=== PATIENT | female | born 1960 | race Caucasian/White ===

== ENCOUNTER 2023-12-12 08:23 | Inpatient (IN) ==
--- NOTE | 2023-11-24 11:05 | PAT Medication Instructions ---
Medication Instructions Date of Service November 24, 2023 Home Medications acetaminophen 500 mg tablet 1,000 mg PO BID cetirizine 10 mg tablet (Zyrtec) 10 mg PO QAM cholecalciferol (vitamin D3) 25 mcg (1,000 unit) tablet (Vitamin D3) 25 mcg PO QAM escitalopram oxalate 10 mg tablet 10 mg PO QAM ezetimibe 10 mg tablet 10 mg PO QAM meloxicam 15 mg tablet 15 mg PO QAM montelukast 10 mg tablet 10 mg PO HS pravastatin 80 mg tablet 80 mg PO HS ASK your surgeon for instructions meloxicam 15 mg tablet 15 mg PO QAM DO NOT take the morning of surgery cetirizine 10 mg tablet (Zyrtec) 10 mg PO QAM cholecalciferol (vitamin D3) 25 mcg (1,000 unit) tablet (Vitamin D3) 25 mcg PO QAM Take morning of surgery With a small sip of water, OTHERWISE NOTHING TO EAT OR DRINK AFTER MIDNIGHT: acetaminophen 500 mg tablet 1,000 mg PO BID escitalopram oxalate 10 mg tablet 10 mg PO QAM ezetimibe 10 mg tablet 10 mg PO QAM Take evening before surgery acetaminophen 500 mg tablet 1,000 mg PO BID montelukast 10 mg tablet 10 mg PO HS pravastatin 80 mg tablet 80 mg PO HS Other Notes If you have any questions please call us at [phone] or [phone] or [phone] or [phone]
--- NOTE | 2023-11-29 08:50 | Anesthesiology Consultation ---
Date of Service November 29, 2023 Assessment & Plan (1) Encounter for pre-operative examination: - surgeon ordered medical clearance: PCP is Dr. Chery Kearns. - potential difficult intubation: mildly limited cervical spine extension. Chart Review Chart Review: Pending: Refer to Additional Notes / Consult section and Patient seen in Pre Admission Testing Teaching & Discussion Pre-Anesthesia Teaching/Discussion Notes: Instructed NPO after midnight before surgery, except medications with 15 cc of water. Medication instructions provided according to the PAT guidelines. History Surgery Operation Date: 12/12/23 10:05 Proposed Procedures p L4-S1 Decompression and Fusion Spinal Cord Monitoring - Gopal Macias DO Height/Weight Height: 5 ft Weight: 82.6 kg Allergies Allergy/AdvReac Type Severity Reaction Status Date / Time No Known Allergies Allergy Verified 11/23/23 11:37 Medications Home Medications Medication Instructions Recorded Confirmed Last Taken acetaminophen 500 mg tablet 1,000 mg PO BID 11/23/23 11/23/23 Unknown cetirizine 10 mg tablet (Zyrtec) 10 mg PO QAM 11/23/23 11/23/23 Unknown cholecalciferol (vitamin D3) 25 25 mcg PO QAM 11/23/23 11/23/23 Unknown mcg (1,000 unit) tablet (Vitamin D3) escitalopram oxalate 10 mg tablet 10 mg PO QAM 11/23/23 11/23/23 Unknown ezetimibe 10 mg tablet 10 mg PO QAM 11/23/23 11/23/23 Unknown meloxicam 15 mg tablet 15 mg PO QA 11/23/23 11/23/23 Unknown montelukast 10 mg tablet 10 mg PO HS 11/23/23 11/23/23 Unknown pravastatin 80 mg tablet 80 mg PO 11/23/23 11/23/23 Unknown Past Medical History Medical History Chronic back pain Depression Hyperlipidemia Scoliosis Patient denies h/o stroke, seizures, heart attack, heart failure, DM, HTN, blood clots/DVTs or blood transfusions. Exercise / Class Metabolic Activity II 4-5 Yardwork/Stairs/Walk up hill (denies chest discomfort or shortness of breath with 1 FOS) Past Family History Family History Other No family history of adverse response to anesthesia Past Surgical History Surgical History History of arthroscopy of right knee History of bilateral carpal tunnel release History of cervical spinal surgery normal ROM History of knee surgery left patella sx History of tonsillectomy History of tooth extraction all teeth removed History of total hysterectomy with bilateral salpingo-oophorectomy (BSO) Status post trigger finger release Past Anesthesia History No Hx of Anesthesia Complications and No Family Hx of Anesthesia Complications History of PONV No Hx of PONV and No Hx of Motion Sickness Social History Smoking Status: Former smoker Do You Dip or Chew Tobacco: No Smoking End Date: quit 5 yrs ago Hx Alcohol Use: No Hx Substance Use: No substance use type: does not use Review of Systems Snoring, denies witnessed apneas. Patient denies chest pain, shortness of breath, dyspnea on exertion, reflux, fever, chills, cough, wheezing, or palpitations. Physical Exam Vital Signs Vitals BP 108/70 P 69 TEMP unable to register as patient was drinking cold water in clinic SP02 94% on RA RESP 18 Physical Patient resting comfortably in chair in no acute distress, alert and oriented, responding appropriately throughout visit Mildly limited cervical extension range of motion without pain TMD 3.5 finger breadths Mallampati Score 3 Dentition: edentulous Lungs: normal respiratory effort. Good air movement, clear throughout to auscultation, no adventitious breath sounds Cardiac: regular rate and rhythm, no murmurs noted Carotid arteries: negative bruit bilat Lab Results Anesthesia Preop Results Results Anesthesia Widget: WBC 6.97 K/ul (4.8-10.8) 11/29/23 Hgb 14.4 g/dl (12.0-16.0) 11/29/23 Hct 43.5 % (37.0-47.0) 11/29/23 Plt 329 K/uL (130-400) 11/29/23 Na 135 mmol/L (136-145) L 11/29/23 K 4.6 mmol/L (3.5-5.1) 11/29/23 Cl 101 mmol/L (98-107) 11/29/23 CO2 28 mmol/L (21-32) 11/29/23 BUN 9 mg/dl (6-23) 11/29/23 Creat 0.66 mg/dl (0.6-1.2) 11/29/23 Glucose Level 100 mg/dl (70-99(Fasting)) H 11/29/23 PT 10.5 Seconds (9.0-12.0) 11/29/23 PTT 29 Seconds (21-31) 11/29/23 INR 1.0 (0.9-1.1) 11/29/23 Urine Color Yellow 11/29/23 Urine Appearance Clear (Clear) 11/29/23 Urine pH 7.0 (4.5-7.5) 11/29/23 Urine Specific [place] 1.006 (1.000-1.030) 11/29/23 Urine Protein Negative (Negative) 11/29/23 Urine Glucose (UA) Negative (Negative) 11/29/23 Urine Ketones Negative (Negative) 11/29/23 Urine Blood Negative (Negative) 11/29/23 Urine Nitrite Negative (Negative) 11/29/23 Urine Bilirubin Negative (Negative) 11/29/23 Urine Urobilinogen Negative (Negative) 11/29/23 Urine Leukocyte Esterase 3+ (Negative) H 11/29/23 Urine WBC (Auto) 10-30 /hpf (0-5) H 11/29/23 Urine RBC (Auto) 0-4 /hpf (0-4) 11/29/23 Urine Hyaline Casts (Auto) 0 /lpf (0-5) 11/29/23 Urine Epithelial Cells (Auto) >30 /lpf (0-5) H 11/29/23 Urine Bacteria (Auto) Negative (Negative) 11/29/23 Blood Type O Positive 11/29/23 Antibody Screen NEGATIVE 11/29/23 Testing Electrocardiogram Date: 11/29/23 NSR, rate 67 bpm Chest X-Ray Date: 11/29/23 No acute process.
[~2023-12-12 08:23] MED LIST: DEXAMETHASONE SOD INJ 4 MG/ML VIAL ONE; LIDOCAINE 2% 2 ML VIAL/AMP(20MG/ML) INFIL ONE; MIDAZOLAM HCL 1 MG/ML 2ML VIAL ONE; ONDANSETRON INJ 2 MG/ML 2 ML VIAL ONE; PROPOFOL IV EMULSION 10 MG/ML 20 ML VIAL IV ONE; ROCURONIUM BROMIDE 10 MG/ML 5 ML VIAL IV ONE; SUGAMMADEX SODIUM 200 MG/2 ML VIAL IV ONE; fentaNYL citrate PF 100 MCG/2 ML VIAL ONE
[2023-12-12] MEDS: LR 60ML/HR IV SCH (09:02)
[2023-12-12] MEDS: LR 15ML/HR IV SCH (09:02)
[2023-12-12] MEDS: CeleBREX 200 MG CAP PO SCH (09:03)
[2023-12-12] MEDS: GABAPENTIN 600 MG DOSE PO SCH (09:03)
[2023-12-12] MEDS: ACETAMINOPHEN 500 MG TAB PO SCH (09:04)
[2023-12-12] MEDS ORDERED: ePHEDrine sulfate 50 MG/ML AMP IV PRN (09:04)
[2023-12-12] MEDS ORDERED: ATROPINE SULFATE 0.1 MG/ML 10ML SYR IV PRN (09:04)
[2023-12-12] MEDS ORDERED: ONDANSETRON INJ 2 MG/ML 2 ML VIAL IV PRN ×2 (09:04→13:43)
--- NOTE | 2023-12-12 09:47 | History & Physical Bridge Note ---
Date of Service December 12, 2023 History & Physical Bridge Note I have examined the patient, reviewed the History & Physical and in the interval since the performance of the History & Physical I have noted the following changes of clinical significance: no changes noted
--- NOTE | 2023-12-12 09:48 | History & Physical Report ---
Date of Service December 12, 2023 Assessment & Plan (1) Neurogenic claudication due to lumbar spinal stenosis: Plan: L4-S1 decompression and fusion History of Present Illness Chief Complaint: Back and leg pain Primary Care Provider: Chery Kearns MD This is a 63-year-old female who presents with chronic persistent back and leg pain after failing course of nonoperative care she is here for surgical invention. Allergies Allergy/AdvReac Type Severity Reaction Status Date / Time No Known Allergies Allergy Verified 12/12/23 08:45 Home Medications Medication Instructions Recorded Confirmed Type acetaminophen 500 mg tablet 1,000 mg PO BID 11/23/23 12/12/23 History cetirizine 10 mg tablet (Zyrtec) 10 mg PO QAM 11/23/23 12/12/23 History cholecalciferol (vitamin D3) 25 25 mcg PO QAM 11/23/23 12/12/23 History mcg (1,000 unit) tablet (Vitamin D3) escitalopram oxalate 10 mg tablet 10 mg PO QAM 11/23/23 12/12/23 History ezetimibe 10 mg tablet 10 mg PO QAM 11/23/23 12/12/23 History meloxicam 15 mg tablet 15 mg PO QAM 11/23/23 12/12/23 History montelukast 10 mg tablet 10 mg PO HS 11/23/23 12/12/23 History pravastatin 80 mg tablet 80 mg PO HS 11/23/23 12/12/23 History Past Med/Surg History Medical History Chronic back pain Depression Hyperlipidemia Scoliosis Surgical History History of arthroscopy of right knee History of bilateral carpal tunnel release History of cervical spinal surgery normal ROM History of knee surgery left patella sx History of tonsillectomy History of tooth extraction all teeth removed History of total hysterectomy with bilateral salpingo-oophorectomy (BSO) Status post trigger finger release Family History Other No family history of adverse response to anesthesia Social History Smoking Status: Former smoker Tobacco Type: Cigarettes Smoking End Date: quit 5 yrs ago; Second Hand Exposure: No; Do You Dip or Chew Tobacco: No; Tobacco Cessation Education Requested by Patient: No Hx Alcohol Use: No Hx Substance Use: No Preferred Language: Arabic Communication Ability: Effective As400 Programmer Required: No Beliefs That Will Affect Care: None Current Living Situation: Significant Other Other Information That Helps Us Care for You: No Feels Safe at Home: Yes Safety Concerns: Feels Safe At This Time Assistive Devices: Denture - Upper and Glasses Physical Exam Physical Exam: Patient is alert and oriented Heart regular in rhythm lungs clear Results & Data Results & Data Vital Signs (Past 12 Hours) Vital Signs Temp Pulse Resp BP Pulse Ox O2 Del Method 12/12/23 08:35 36.5 C 78 20 151/73 H 95 Room Air
[2023-12-12] MEDS: ceFAZolin 2000MG 2,000 MG/15 ML SYR IV SCH ×2 (10:13→17:39)
[2023-12-12] MEDS ORDERED: ePHEDrine sulfate 50 MG/ML AMP ONE (10:33)
[2023-12-12] MEDS: BUPIVACAINE/EPINEPHRINE 0.5% MPF 1:200,000 30 ML VIAL ONE (10:54)
[2023-12-12] MEDS: ceFAZolin 330 MG/ML 1 GM VIAL ONE (10:54)
[2023-12-12] MEDS: FLOSEAL HEMOSTATIC MATRIX 10ML TOP ONE (11:49)
[2023-12-12] MEDS ORDERED: ONDANSETRON INJ 2 MG/ML 2 ML VIAL ONE (11:51)
--- NOTE | 2023-12-12 11:59 | Operative Report ---
Post Operative Report Pre & Post Diagnosis Operation Date: 12/12/23 10:05 Pre-Op Diagnosis: Neurogenic Claudication due to Lumbar Spinal Stenosis Post-Op Diagnosis: Neurogenic Claudication due to Lumbar Spinal Stenosis I identified the patient and participated in the time-out.: Yes Procedure Operation Date: 12/12/23 10:05 Actual Procedures Lumbar decompression bilateral medial facetectomies and foraminotomies L3-L4, L4-5 and L5-S1. #2 posterior spinal fusion L4-S1. #3 placed posterior instrumentation L4-S1. #4 interbody fusion L4-L5 L5-S1. #5 placement spiral 12 x 26 mm cage at L4-5 and 11 x 26 mm cage at L5-S1. #6 placement locally harvested morselized autograft and posterior gutters. #7 placement of infuse collagen sponge combined with Koros bone graft in the posterior gutters and Koros bone graft interbody space. Surgeon Gopal Macias, DO Mud Jack Nozzleman Staci Partida Estimated Blood Loss 400 Findings See Below The patient is 5 foot tall weighing over 82 kg with a BMI in excess of 35. Pat ient body habitus did contribute to significant technical difficulty with positioning exposure and the procedure itself adding at least 50% increased operative time. Specimens None Indications This is a 63-year-old female who presents above-mentioned diagnosis and failed course of nonoperative care is here for surgical invention. Description of Procedure Patient was met with identified informed consent obtained. Patient was then taken to the operative suite underwent patient placed in prone position on the Ml table top the Dany frame. All bony prominences well-padded eyes inspected to ensure no external precipice upon them. This point lumbar spine was prepped and draped in a sterile fashion. Sharp dissection with the assistance of Bovie cautery to form down to and exposing the lamina transverse processes of L4-5 and sacral ala bilaterally. For calcified fashion complete laminectomy L5 L4 postlaminectomy L3 was performed including bilateral male facetectomies and foraminotomies addressing severe spinal stenosis. Pedicle screws were then placed at L4-5 and S1 levels bilaterally with assistance of fluoroscopy appropriate size puma placed. By way of transforaminal approach on the left complete discectomy of L5-S1 was performed endplates guarded to subcortical mean bone and a 10 x 26 mm Spira cage with Koros tapped into position. Then proceeded to L [address] by [address] of transforaminal approach the left complete discectomy performed endplates guarded to subcortical bleeding bone and a 12 x 26 mm spiral cage filled with Koros tapped position. The rods were then compressed locked in final position bilaterally. The transverse processes of L4-5 and sacral ala burred to subcortical bleeding bone. Infuse collagen sponge, mass graft locally harvested morselized graft placed in posterior gutters. 15 round THEE inserted. The incision was then closed with 1 Vicryl and fascia 2-0 Vicryl subcutaneously and 4 Monocryl for final skin closure. Steri-Strips dressings placed. Patient waken taken to PACU stable condition. Please note spinal cord monitoring visualized at the procedure no changes noted. Lastly Staci Partida was present at the entire surgeon while the patient positioning complex portion of the surgery and final skin closure. I attest to the content of the Intraoperative Record and any orders documented therein. Any exceptions are noted below.
[2023-12-12] MEDS: fentaNYL citrate PF 100 MCG/2 ML VIAL IV PRN (12:25)
--- NOTE | 2023-12-12 12:38 | Fluoroscopy Report ---
FL lumbar spine 2-3V CLINICAL HISTORY: L4-S1 DECOMPRESSION AND FUSION COMPARISON STUDY: None. FLUOROSCOPY TIME: 24 seconds FLUOROSCOPY IMAGES: 2 Ka,r: 20 mGy FINDINGS: Posterior decompression and fusion from L4 through S1 with pedicle screws and rods. The naty dware appears intact. Disc spacers are placed. Small pledget is seen posterior to the L4-5 disc space . IMPRESSION: Fluoroscopic assistance as above. ACT 112: Negative or not required by law. Electronically signed by: Harman Bullock M.D. 12/12/2023 12:36 PM
[2023-12-12] MEDS: HYDROmorphone INJ 1 MG/ML SYRINGE IV PRN (12:54)
--- NOTE | 2023-12-12 13:16 | Anesthesiology Progress Note ---
Date of Service December 12, 2023 Anesthesia Post Procedure Vital Signs Vital Signs: Temp Pulse Resp BP Pulse Ox O2 Del Method O2 Flow Rate 12/12/23 13:10 97.3 F L 91 H 16 116/67 98 Nasal Cannula 2 12/12/23 13:00 94 H 18 115/74 98 Nasal Cannula 2 12/12/23 12:50 91 H 15 118/63 96 Nasal Cannula 2 12/12/23 12:40 86 19 114/77 96 Oxymask 4 12/12/23 12:30 83 17 155/83 H 98 Oxymask 6 12/12/23 12:20 94 H 16 142/87 H 98 Oxymask 6 12/12/23 12:14 97.3 F L 96 H 24 156/76 H 98 Oxymask 6 12/12/23 08:35 97.7 F 78 20 151/73 H 95 Room Air Pain Intensity Back: Pain Intensity: 2 Transfer of Care Handoff Completed per policy Notes Mental Status: alert / awake / arousable and participated in evaluation Patient Amnestic to Procedure: Yes Nausea / Vomiting: adequately controlled Pain: adequately controlled Airway Patency, RR, SpO2: stable & adequate BP & HR: stable & adequate Hydration State: stable & adequate Anesthetic Complications: no major complications apparent and Pt Satisfied with anesthetic care
[2023-12-12] MEDS ORDERED: NALOXONE HCL 0.4 MG/1 ML VIAL/CARP IV PRN (13:43)
[2023-12-12] MEDS ORDERED: FAMOTIDINE 20 MG TAB PO PRN (13:43)
[2023-12-12] MEDS ORDERED: ALUMINUM/MAGNESIUM SUSP 30 ML UDC PO PRN (13:43)
[2023-12-12] MEDS ORDERED: MAGNESIUM HYDROXIDE SUSP 30 ML UDC PO PRN (13:43)
[2023-12-12] MEDS ORDERED: PROMETHAZINE HCL 12.5 MG in SODIUM CHLORIDE 0.9% 50 ML IV PRN (13:43)
[2023-12-12] MEDS ORDERED: HYDROmorphone INJ 0.5 MG/0.5 ML SYR IV PRN (13:43)
[2023-12-12] MEDS ORDERED: hydrOXYzine HCl 25 MG TAB PO PRN (13:43)
[2023-12-12] MEDS ORDERED: DO NOT ADMINISTER PNEUMOCOCCAL VACCINE PRN (13:43)
[2023-12-12] MEDS ORDERED: ACETAMINOPHEN 1,000 MG/100 ML VIAL IV PRN (13:43)
[2023-12-12] MEDS ORDERED: LORazepam 0.5 MG TAB PO PRN (13:43)
[2023-12-12] MEDS ORDERED: LORazepam 0.5 MG in SYRINGE 0.25 ML IV PRN (13:43)
[2023-12-12] MEDS ORDERED: SOD PHOSPHATE/SOD BIPHOSPHATE ENEMA 132 ML BTL PR PRN (13:43)
[2023-12-12] MEDS ORDERED: ONDANSETRON 4 MG OD TAB PO PRN (13:43)
[2023-12-12] MEDS ORDERED: bisacodyL 10 MG SUPP PR PRN (13:43)
[2023-12-12] MEDS ORDERED: diphenhydrAMINE Capsule 25 MG CAP PO PRN (13:43)
[2023-12-12] MEDS ORDERED: METOCLOPRAMIDE HCL INJ 5 MG/ML 2 ML VIAL IV PRN (13:43)
[2023-12-12] MEDS ORDERED: DO NOT ADMINISTER FLU VACCINE PRN (13:43)
[2023-12-12] MEDS ORDERED: HYDROmorphone INJ 1 MG/ML SYRINGE IV PRN (13:43)
[2023-12-12] MEDS: SODIUM CHLORIDE 0.9% 1,000 ML IV SCH (14:29)
--- NOTE | 2023-12-12 15:03 | Consultation ---
Date of Consultation December 12, 2023 Assessment & Plan (1) Neurogenic claudication due to lumbar spinal stenosis: (2) Hyperlipidemia: Plan This is a 63-year-old female who has a significant past medical history of chronic back pain, hyperlipidemia and depression who presents for elective lumbar procedure by Dr. Macias. Neurogenic claudication due to lumbar spinal stenosis Status post L4-S1 lumbar decompression fusion, POD #[address] Macias EBL 400 mL Tolerated procedure well Pain/wound management per orthopedics Activity and therapy as prescribed orthopedics Encourage incentive spirometer Preoperative hemoglobin 14.4, monitor postoperatively Hyperlipidemia Chronic, stable Continue statin, ezetimibe Depression Chronic, stable Continue escitalopram DVT prophylaxis: SCD Full code PCP: Chery Kearns Dispo: per primary Patient was seen and examined in collaboration with, Dr. Pineda, please see addendum A total of 45 minutes was spent coordinating, documenting, and providing care for this patient excluding time spent in the performance of separately billed services. This included personally viewing all current laboratories and imaging studies, medication reconciliation, outpatient chart review, and discussion with specialists. Thank you for this consultation. We will follow the patient with you during their hospital stay. You can reach a member of the [facility] Hospitalist Team 15/05 via hospitalist role on tiger text. Supervising Physician Co-Signing Physician Notes Attending addendum: The patient was seen and examined in medical floor She is status post L4-S1 decompression and fusion Complaints minimal pain at the back without radiation Denies any other significant symptoms On examined Lying in bed comfortably Remains hemodynamically stable Chest-clear to auscultate bilateral Heart-S1-S2, regular Abdomen-benign Extremities-no edema CONE PICKER-alert, awake and oriented x 3 Her labs, EKG and imaging studies reviewed Status post L4-S1 decompression and fusion for neurogenic claudication Has been doing better following the procedure and denies any significant sym ptoms Remains medically stable Agree with assessment plan as outlined above by Tyesha Pineda History of Present Illness Requesting Physician: Dr. Macias Reason for Consultation: Postop med management Attending Physician: Gopal Macias, DO History of Present Illness This is a 63-year-old female who has a significant past medical history of chronic back pain, hyperlipidemia and depression who presents for elective lumbar procedure by Dr. Macias. She underwent L4-S1 lumbar decompression fusion and tolerated the procedure well. Her outpatient records were reviewed. She is history of hyperlipidemia controlled on pravastatin. She is also on ezetimibe. She also has history of depression controlled on escitalopram. Shes states ever since her she has been on this. Post operatively she feels well. She is complaining of incisional back pain and requesting analgesia. She denies f/c/s, chest pain, sob, n/v/d. She tolerated lunch post operatively. Prior to procedure she was passing urine and moving bowels w/o difficulty. Allergies Allergy/AdvReac Type Severity Reaction Status Date / Time No Known Allergies Allergy Verified 12/12/23 08:45 Home Medications Medication Instructions Recorded Confirmed Type acetaminophen 500 mg tablet 1,000 mg PO BID 11/23/23 12/12/23 History cetirizine 10 mg tablet (Zyrtec) 10 mg PO QAM 11/23/23 12/12/23 History cholecalciferol (vitamin D3) 25 25 mcg PO QAM 11/23/23 12/12/23 History mcg (1,000 unit) tablet (Vitamin D3) escitalopram oxalate 10 mg tablet 10 mg PO QAM 11/23/23 12/12/23 History ezetimibe 10 mg tablet 10 mg PO QAM 11/23/23 12/12/23 History meloxicam 15 mg tablet 15 mg PO QAM 11/23/23 12/12/23 History montelukast 10 mg tablet 10 mg PO HS 11/23/23 12/12/23 History pravastatin 80 mg tablet 80 mg PO HS 11/23/23 12/12/23 History oxycodone 5 mg tablet 5 mg PO Q6H PRN pain #30 tabs 12/12/23 Rx tramadol 50 mg tablet 50 mg PO Q6H PRN pain, moderate 12/12/23 Rx #30 tabs Patient History Medical History (Updated 12/12/23 @ 15:00 by Amirah Stein PA-C) Scoliosis Chronic back pain Hyperlipidemia Depression Surgical History History of bilateral carpal tunnel release Status post trigger finger release History of knee surgery left patella sx History of arthroscopy of right knee History of total hysterectomy with bilateral salpingo-oophorectomy (BSO) History of tooth extraction all teeth removed History of tonsillectomy History of cervical spinal surgery normal ROM Family History (Updated 12/12/23 @ 15:19 by Amirah Stein PA-C) Other Coronary heart disease No family history of adverse response to anesthesia Social History Smoking Status: Former smoker Tobacco Type: Cigarettes Smoking End Date: quit 5 yrs ago; Second Hand Exposure: No; Do You Dip or Chew Tobacco: No; Tobacco Cessation Education Requested by Patient: No Hx Alcohol Use: No Hx Substance Use: No Preferred Language: Malaysian Communication Ability: Effective Water Meter Mechanic Required: No Beliefs That Will Affect Care: None Current Living Situation: Significant Other Other Information That Helps Us Care for You: No Feels Safe at Home: Yes Safety Concerns: Feels Safe At This Time Assistive Devices: Walker Review of Systems Review of Systems: All systems reviewed & are unremarkable except as noted in HPI & below Physical Exam Physical Exam: Constitutional: WD/WN, vitals as above, NAD, sitting up in bed, pleasant, conversing easily Head: Normocephalic, Atraumatic Eyes: PERRL, conjunctivae normal, anicteric sclerae ENMT: external ear and nose normal, oropharynx normal Neck: trachea midline, no thyromegaly normal visual inspection Respiratory: normal respiratory effort, lungs clear to auscultation, no wheeze, rales, rhonchi. Normal insp/exp effort, no accessory muscle use Cardiovascular: RRR, no murmur, no edema Vessels: no JVD or carotid bruit Chest: normal inspection of chest Abdomen: normal bowel sounds, soft, nontender, no hepatosplenomegaly Musculoskeletal: no cyanosis or clubbing, extremities motor strength 5/5 Skin: no rashes, warm and dry normal turgor Neurologic: PERRL, EOMI, accommodation nl, no face palsy, no dysarthria CN's II-XI intact bilaterally and moves all extremities Psychiatric: A+Ox3, euthymic affect Lymphatic: no cervical or axillary lymphadenopathy : deferred Results & Data Vital Signs (Past 12 Hours) Vital Signs Temp Pulse Pulse Resp BP Pulse Ox O2 Del Method 12/12/23 14:25 36.1 C L 95 H 14 108/61 92 Room Air 12/12/23 13:55 36.2 C L 92 H 14 110/62 93 Room Air 12/12/23 13:30 36.9 C 94 H 14 123/69 94 Room Air 12/12/23 13:10 36.3 C L 91 H 16 116/67 98 Nasal Cannula 12/12/23 13:00 94 H 18 115/74 98 Nasal Cannula 12/12/23 12:50 91 H 15 118/63 96 Nasal Cannula 12/12/23 12:40 86 19 114/77 96 Oxymask 12/12/23 12:30 83 17 155/83 H 98 Oxymask 12/12/23 12:20 94 H 16 142/87 H 98 Oxymask 12/12/23 12:14 36.3 C L 96 H 24 156/76 H 98 Oxymask 12/12/23 08:35 36.5 C 78 20 151/73 H 95 Room Air O2 Flow Rate 12/12/23 14:25 12/12/23 13:55 12/12/23 13:30 12/12/23 13:10 2 12/12/23 13:00 2 12/12/23 12:50 2 12/12/23 12:40 4 12/12/23 12:30 6 12/12/23 12:20 6 12/12/23 12:14 6 12/12/23 08:35 Laboratory Results Lab work performed on 11/29/2023 reviewed WBC 6.97, H&H 14.4 and 43.5, platelet 329, sodium 135, BUN 9, creatinine 0.66, glucose 100. Urinalysis revealed bacteria, but urine culture revealed more than 3 types of organisms present likely skin gavi. Diagnostic Findings Lumbar Spine X-Ray 12/12/23 10:05 FL lumbar spine 2-3V CLINICAL HISTORY: L4-S1 DECOMPRESSION AND FUSION COMPARISON STUDY: None. FLUOROSCOPY TIME: 24 seconds FLUOROSCOPY IMAGES: 2 Ka,r: 20 mGy FINDINGS: Posterior decompression and fusion from L4 through S1 with pedicle screws and rods. The hardware appears intact. Disc spacers are placed. Small pledget is seen posterior to the L4-5 disc space. IMPRESSION: Fluoroscopic assistance as above. ACT 112: Negative or not required by law. Electronically signed by: Harman Bullock M.D. 12/12/2023 12:36 PM Medications Administered Current Inpatient Medications Acetaminophen (Acetaminophen 500 Mg Tab) 1,000 mg PO PREOP ASPEN Stop: 12/12/23 18:00 Last Admin: 12/12/23 09:04 Dose: Not Given Acetaminophen (Acetaminophen 500 Mg Tab) 1,000 mg PO Q8H PRN PRN Reason: MILD Pain Scale 1,2,3 & Pre PT Stop: 01/11/24 13:42 Al Hydrox/Mg Hydrox/Simethicone (Aluminum/Magnesium Susp 30 Ml Udc) 30 ml PO Q6H PRN PRN Reason: Dyspepsia Stop: 01/11/24 13:42 Atropine Sulfate (Atropine Sulfate 0.1 Mg/Ml 10ml Syr) 0.5 mg IV Q1M PRN PRN Reason: PACU Use-HR<40 &/or Bradycardi Stop: 12/12/23 17:04 Bisacodyl (Bisacodyl 10 Mg Supp) 10 mg MT DAILY PRN PRN Reason: Constipation Stop: 01/11/24 13:42 Celecoxib (Celebrex 200 Mg Cap) 200 mg PO PREOP ASPEN Stop: 12/12/23 18:00 Last Admin: 12/12/23 09:03 Dose: 200 mg Cetirizine HCl (Cetirizine Hcl 10 Mg Tablet) 10 mg PO QAM ASEPN Stop: 01/12/24 08:59 Diphenhydramine HCl (Diphenhydramine Capsule 25 Mg Cap) 25 mg PO Q6H PRN PRN Reason: Allergic Rhinitis/Insomnia Stop: 01/11/24 13:42 Ezetimibe (Ezetimibe 10 Mg Tab) 10 mg PO QAM ASPEN Stop: 01/12/24 08:59 Ephedrine Sulfate (Ephedrine Sulfate 50 Mg/Ml Amp) 5 mg IV Q5M PRN PRN Reason: PACU Use Only-SBP<90 mmHg Stop: 12/12/23 17:04 Escitalopram Oxalate (Escitalopram Oxalate 10 Mg Tab) 10 mg PO QAM ASPEN Stop: 01/12/24 08:59 Famotidine (Famotidine 20 Mg Tab) 20 mg PO Q12H PRN PRN Reason: Dyspepsia Stop: 01/11/24 13:42 Fentanyl Citrate (Fentanyl Citrate Pf 100 Mcg/2 Ml Vial) 50 mcg IV Q5M PRN PRN Reason: PACU Use Only-Pain Stop: 12/12/23 17:05 Last Admin: 12/12/23 12:35 Dose: 50 mcg Gabapentin (Gabapentin 600 Mg Dose) 600 mg PO PREOP ASPEN Stop: 12/12/23 18:00 Last Admin: 12/12/23 09:03 Dose: 600 mg Hydromorphone HCl (Hydromorphone Inj 1 Mg/Ml Syringe) 0.25 mg IV Q5M PRN PRN Reason: PACU Use Only-Pain Stop: 12/12/23 17:05 Last Admin: 12/12/23 12:59 Dose: 0.25 mg Hydromorphone HCl (Hydromorphone Inj 0.5 Mg/0.5 Ml Syr) 0.5 mg IV Q3H PRN PRN Reason: MODERATE Pain (Scale 4,5,6) & Pre PT Stop: 12/26/23 13:42 Hydromorphone HCl (Hydromorphone Inj 1 Mg/Ml Syringe) 1 mg IV Q3H PRN PRN Reason: SEVERE Pain (Scale 7,8,9,10) Stop: 12/26/23 13:42 Hydroxyzine HCl (Hydroxyzine Hcl 25 Mg Tab) 25 mg PO Q8H PRN PRN Reason: Anxiety Stop: 01/11/24 13:42 Lactated Ringer's (Lr) 1,000 mls @ 60 mls/hr IV .[id number] ASPEN Stop: 12/12/23 22:39 Last Admin: 12/12/23 09:02 Dose: Not Given Cefazolin Sodium (Ancef 2000mg) 2,000 mg in 15 mls @ 3.75 mls/min IV PREOP ASPEN; Protocol Stop: 12/12/23 18:00 Last Admin: 12/12/23 10:13 Dose: 3.75 mls/min Lactated Ringer's (Lr) 1,000 mls @ 15 mls/hr IV .Q24H ASPEN Stop: 12/13/23 05:59 Last Infusion: 12/12/23 10:12 Dose: Infused Sodium Chloride (Nss) 1,000 mls @ 100 mls/hr IV .Q10H ASPEN Stop: 01/11/24 13:42 Last Admin: 12/12/23 14:29 Dose: 100 mls/hr Promethazine HCl 12.5 mg/ (Sodium Chloride) 50.5 mls @ 202 mls/hr IV Q6H PRN PRN Reason: Nausea &/or Vomiting Stop: 01/11/24 13:42 Acetaminophen (Ofirmev) 1,000 mg in 100 mls @ 400 mls/hr IV Q8H PRN PRN Reason: Pain Rating 1-3 & Pre PT Stop: 12/13/23 13:43 Cefazolin Sodium (Ancef 2000mg) 2,000 mg in 15 mls @ 3.75 mls/min IV Q8H ASPEN; Protocol Stop: 12/13/23 02:03 Lorazepam 0.5 mg/ Syringe 0.5 mls @ 2 mls/min IV Q8H PRN; Protocol PRN Reason: Sedation/Anxiety Stop: 01/11/24 13:42 Dexamethasone 6 mg/ Syringe 1.5 mls @ 1 mls/min IV DAILY ASPEN Stop: 12/15/23 09:02 Influenza Virus Vaccine Quadrival (Do Not Administer Flu Vaccine) 1 each N/A PRN PRN PRN Reason: Notification Stop: 01/11/24 13:42 Lorazepam (Lorazepam 0.5 Mg Tab) 0.5 mg PO Q8H PRN PRN Reason: Sedation/Anxiety Stop: 01/11/24 13:42 Magnesium Hydroxide (Magnesium Hydroxide Susp 30 Ml Udc) 30 ml PO Q24H PRN PRN Reason: Constipation Stop: 01/11/24 13:42 Metoclopramide HCl (Metoclopramide Hcl Inj 5 Mg/Ml 2 Ml Vial) 10 mg IV Q6H PRN PRN Reason: Nausea &/or Vomiting Stop: 01/11/24 13:42 Montelukast Sodium (Montelukast Sodium 10 Mg Tablet) 10 mg PO HS ASPEN Stop: 01/11/24 20:59 Naloxone HCl (Naloxone Hcl 0.4 Mg/1 Ml Vial/Carp) 0.1 mg IV Q5M PRN PRN Reason: Oversedation/Resp depression Stop: 01/11/24 13:42 Ondansetron HCl (Ondansetron Inj 2 Mg/Ml 2 Ml Vial) 4 mg IV ONCE PRN PRN Reason: PACU Use Only-Nausea/Vomiting Stop: 12/12/23 17:05 Ondansetron HCl (Ondansetron Inj 2 Mg/Ml 2 Ml Vial) 4 mg IV Q6H PRN PRN Reason: Nausea &/or Vomiting Stop: 01/11/24 13:42 Ondansetron HCl (Ondansetron 4 Mg Od Tab) 4 mg PO Q6H PRN PRN Reason: Nausea Stop: 01/11/24 13:42 Oxycodone HCl (Oxycodone Hcl Ir 5 Mg Tab (Immediate Release)) 5 - 10 mg PO Q4H PRN PRN Reason: Pain & Pre PT Stop: 12/26/23 13:42 Pneumococcal Polyvalent Vaccine (Do Not Administer Pneumococcal Vaccine) 1 each N/A PRN PRN PRN Reason: Notification Stop: 01/11/24 13:42 Polyethylene Glycol (Polyethylene (Miralax) 17 Gm Pack) 17 gm PO Q6 ASPEN Stop: 01/12/24 05:59 Pravastatin Sodium (Pravastatin Sod 40 Mg Tab) 80 mg PO HS ASPEN Stop: 01/11/24 20:59 Senna/Docusate Sodium (Docusate Sodium/Senna 50/8.6mg Tab) 2 tab PO HS ASPEN Stop: 01/11/24 20:59 Sodium Biphosphate/Sodium Phosphate (Sod Phosphate/Sod Biphosphate Enema 132 Ml Btl) 132 ml MT ONE PRN PRN Reason: Constipation Stop: 01/11/24 13:42 Tramadol HCl (Tramadol Hcl 50 Mg Tablet) 50 - 100 mg PO Q4H PRN PRN Reason: Moderate-Severe pain & Pre PT Stop: 01/11/24 13:42 Vitamin D (Cholecalciferol 25 Mcg (1000 Units) Tab) 25 mcg PO QAM ASPEN Stop: 01/12/24 08:59 ECG Additional Comments: Preoperative EKG done on 11/29/2023 was independently reviewed and interpreted by myself. It showed a ventricular rate of 67 bpm, normal sinus rhythm, no ST or T wave changes noted, QTc 403 MS
[2023-12-12] MEDS: oxyCODONE HCL IR 5 MG TAB (IMMEDIATE RELEASE) PO PRN (15:31)
[2023-12-12] MEDS: PRAVASTATIN SOD 40 MG TAB PO SCH (20:25)
[2023-12-12] MEDS: MONTELUKAST SODIUM 10 MG TABLET PO SCH (20:25)
[2023-12-12] MEDS: DOCUSATE SODIUM/SENNA 50/8.6MG TAB PO SCH (20:25)
[2023-12-12] MEDS: traMADol HCL 50 MG TABLET PO PRN (20:32)
[2023-12-13] MEDS: POLYETHYLENE (MIRALAX) 17 GM PACK PO SCH (05:05)
[2023-12-13 06:32] LABS: Basophils # (auto) 0.02 K/uL (0.00-0.20); Basophils % (auto) 0.1 %; Hematocrit (blood only) 35.2 % (37.0-47.0); Hemoglobin 11.6 g/dl (12.0-16.0); Immature Granulocytes # (auto) 0.08 K/uL (0.01-0.20); Immature Granulocytes % (auto) 0.5 %; Lymphocytes # (auto) 2.16 K/uL (1.20-3.40); Lymphocytes % (auto) 14.6 %; Mean Corpuscular Hemoglobin 32.1 pg (25.0-34.0); Mean Corpuscular Volume 97.5 fL (80.0-100.0); Mean Platelet Volume 9.3 fL (9.4-12.4); Monocytes # (auto) 0.65 K/uL (0.11-0.59); Monocytes % (auto) 4.4 %; Neutrophils # (auto) 11.87 K/uL (1.40-6.50); Neutrophils % (auto) 80.4 %; Platelet Count 325 K/uL (130-400); RDW Coefficient of Variation 12.7 % (11.5-14.5); RDW Standard Deviation 45.5 fL (36.4-46.3); Red Blood Count 3.61 M/uL (4.20-5.40); White Blood Count 14.78 K/ul (4.8-10.8)
[2023-12-13 06:57] LABS: Calcium 8.7 mg/dl (8.6-10.3); Creatinine Clr Calc Pharmacy 85.9 ml/min; Est GFR (African American) 109.9 ml/min; Est GFR (Non-African American) 94.8 ml/min; Potassium 4.3 mmol/L (3.5-5.1)
[2023-12-13] MEDS: CETIRIZINE HCL 10 MG TABLET PO SCH (07:43)
[2023-12-13] MEDS: ESCITALOPRAM OXALATE 10 MG TAB PO SCH (07:43)
[2023-12-13] MEDS: EZETIMIBE 10 MG TAB PO SCH (07:43)
[2023-12-13] MEDS: CHOLECALCIFEROL 25 MCG (1000 UNITS) TAB PO SCH (07:43)
[2023-12-13] MEDS: dexAMETHasone 6 MG in SYRINGE 0 ML IV SCH (07:43)
--- NOTE | 2023-12-13 08:47 | Orthopedic Progress Note ---
Date of Service December 13, 2023 Assessment & Plan (1) Neurogenic claudication due to lumbar spinal stenosis: Plan: Serenity is postoperative day 1 status post L4-S1 decompression and fusion. Will start physical therapy today. Maintain THEE drain. Continue with DVT prophylaxis in the form of teds and SCDs. Continue with aggressive bowel regimen. Work on pain control. Anticipate discharge home later on this week Admission and Anticipated Discharge Date Admission Date: December 12, 2023 Subjective Serenity is postoperative day 1 status post L4-S1 decompression and instrumented fusion. She had an uneventful evening. Complains of back pain only. Radicular leg pain resolved. THEE drain output last shift was 80 cc. H&H this morning are 11.6 and 35.2 respectively. No other complaints. Review of Systems Review of Systems: All systems reviewed & are unremarkable except as noted in HPI & below Physical Exam Physical Exam: Sitting up in bed eating breakfast in no acute distress Alert and oriented x 3 Lumbar dressing is clean dry and intact with functioning THEE drain Calf soft nontender bilaterally Strength intact bilateral lower extremities Results & Data Vital Signs (Past 12 Hours) Vital Signs Temp Pulse Resp BP Pulse Ox O2 Del Method 12/13/23 08:08 37.0 C 76 18 95/61 L 94 Room Air 12/13/23 03:00 37.0 C 72 16 104/68 94 Room Air 12/12/23 23:00 36.9 C 74 16 101/64 95 Room Air
--- NOTE | 2023-12-13 13:31 | Hospitalist Progress Note ---
Date of Service December 13, 2023 Assessment & Plan (1) Neurogenic claudication due to lumbar spinal stenosis: (2) Hyperlipidemia: Plan This is a 63-year-old female who has a significant past medical history of chronic back pain, hyperlipidemia and depression who presents for elective lumbar procedure by Dr. Macias. Neurogenic claudication due to lumbar spinal stenosis Status post L4-S1 lumbar decompression fusion, by Dr. Macias Procedure on 12/12/23 EBL 400 mL Tolerated procedure well Pain/wound management per orthopedics Activity and therapy as prescribed orthopedics Encourage incentive spirometer Preoperative hemoglobin 14.4, monitor postoperatively -currently 11.6, continue to monitor Hyperlipidemia Chronic, stable Continue statin, ezetimibe Depression Chronic, stable Continue escitalopram DVT prophylaxis: per primary team Full code Dispo: per primary Thank you for this consultation. We will follow the patient with you during their hospital stay. You can reach a member of the [facility] Hospitalist Team 15/05 via the hospitalist role on tiger text Admission and Anticipated Discharge Date Admission Date: December 12, 2023 Subjective Pt was seen walking through the hallways. States that she is doing well. passing gas, pain controlled. Review of Systems Review of Systems: All systems reviewed & are unremarkable except as noted in Subjective Physical Exam Physical Exam: General: Alert, oriented. No acute distress Skin: No noted rashes or bruises Psych: Appropriate mood and affect Neuro: walks with walker HEENT: NC/AT Chest: Nontender to palpation. CV: RRR Resp: Breath sounds clear bilaterally, no increased effort of breathing. Abdomen: Soft, nontender, nondistended. No guarding. No organomegaly appreciated. Extremities: No edema in lower extremities bilaterally. Results & Data Results & Data Vital Signs (Past 12 Hours) Vital Signs Temp Pulse Resp BP Pulse Ox O2 Del Method 12/13/23 08:08 37.0 C 76 18 95/61 L 94 Room Air 12/13/23 03:00 37.0 C 72 16 104/68 94 Room Air
[2023-12-14 06:13] LABS: Basophils # (auto) 0.03 K/uL (0.00-0.20); Basophils % (auto) 0.2 %; Hematocrit (blood only) 32.5 % (37.0-47.0); Immature Granulocytes # (auto) 0.13 K/uL (0.01-0.20); Lymphocytes # (auto) 3.48 K/uL (1.20-3.40); Lymphocytes % (auto) 26.4 %; Mean Corpuscular Hemoglobin 32.4 pg (25.0-34.0); Mean Corpuscular Hgb Conc 33.8 g/dL (32.0-36.0); Mean Corpuscular Volume 95.9 fL (80.0-100.0); Mean Platelet Volume 9.4 fL (9.4-12.4); Monocytes # (auto) 0.59 K/uL (0.11-0.59); Monocytes % (auto) 4.5 %; Neutrophils # (auto) 8.96 K/uL (1.40-6.50); Neutrophils % (auto) 67.9 %; Platelet Count 310 K/uL (130-400); Red Blood Count 3.39 M/uL (4.20-5.40); White Blood Count 13.19 K/ul (4.8-10.8)
[2023-12-14 06:35] LABS: Calcium 8.7 mg/dl (8.6-10.3); Creatinine Clr Calc Pharmacy 93.3 ml/min; Est GFR (African American) 112.9 ml/min; Est GFR (Non-African American) 97.4 ml/min
[2023-12-14] MEDS: ACETAMINOPHEN 500 MG TAB PO PRN (08:25)
--- NOTE | 2023-12-14 08:53 | Orthopedic Progress Note ---
Date of Service December 14, 2023 Assessment & Plan (1) Neurogenic claudication due to lumbar spinal stenosis: Plan: At this time continue physical therapy monitor THEE output anticipate discharge home tomorrow. Admission and Anticipated Discharge Date Admission Date: December 12, 2023 Subjective Back pain controlled leg pain markedly improved Physical Exam Physical Exam: Patient is up and ambulating halls. Is comfortable. Discharge at this time. Results & Data Vital Signs (Past 12 Hours) Vital Signs Temp Pulse Resp BP Pulse Ox O2 Del Method 12/14/23 07:21 37 C 68 16 130/73 97 Room Air Queries Orthopedic Spine Obesity: Yes
--- NOTE | 2023-12-14 11:53 | Hospitalist Progress Note ---
Date of Service December 14, 2023 Assessment & Plan (1) Neurogenic claudication due to lumbar spinal stenosis: (2) Hyperlipidemia: Plan This is a 63-year-old female who has a significant past medical history of chronic back pain, hyperlipidemia and depression who presents for elective lumbar procedure by Dr. Macias. Neurogenic claudication due to lumbar spinal stenosis Status post L4-S1 lumbar decompression fusion, by Dr. Macias Procedure on 12/12/23 EBL 400 mL Tolerated procedure well Pain/wound management per orthopedics Activity and therapy as prescribed orthopedics Encourage incentive spirometer Preoperative hemoglobin 14.4, monitor postoperatively -currently 11.0, continue to monitor Hyperlipidemia Chronic, stable Continue statin, ezetimibe Depression Chronic, stable Continue escitalopram DVT prophylaxis: per primary team Full code Dispo: per primary Thank you for this consultation. We will follow the patient with you during their hospital stay. You can reach a member of the [facility] Hospitalist Team 15/05 via the hospitalist role on tiger text Admission and Anticipated Discharge Date Admission Date: December 12, 2023 Subjective Pt was seen sitting in chair at bedside. States that she has been up and moving around with her walker. Otherwise denied acute concerns. Review of Systems Review of Systems: All systems reviewed & are unremarkable except as noted in Subjective Physical Exam Physical Exam: General: Alert, oriented. No acute distress Skin: No noted rashes or bruises Psych: Appropriate mood and affect Neuro: walks with walker HEENT: NC/AT Chest: Nontender to palpation. CV: RRR Resp: Breath sounds clear bilaterally, no increased effort of breathing. Abdomen: Soft, nontender, nondistended. No guarding. No organomegaly appreciated. Extremities: No edema in lower extremities bilaterally. Results & Data Results & Data Vital Signs (Past 12 Hours) Vital Signs Temp Pulse Resp BP Pulse Ox O2 Del Method 12/14/23 07:21 37 C 68 16 130/73 97 Room Air
[2023-12-15 06:23] LABS: Basophils # (auto) 0.03 K/uL (0.00-0.20); Basophils % (auto) 0.2 %; Eosinophils # (auto) 0.01 K/uL (0.00-0.50); Eosinophils % (auto) 0.1 %; Hematocrit (blood only) 32.3 % (37.0-47.0); Hemoglobin 10.8 g/dl (12.0-16.0); Immature Granulocytes # (auto) 0.12 K/uL (0.01-0.20); Immature Granulocytes % (auto) 0.8 %; Lymphocytes # (auto) 4.32 K/uL (1.20-3.40); Lymphocytes % (auto) 29.7 %; Mean Corpuscular Hemoglobin 32.2 pg (25.0-34.0); Mean Corpuscular Hgb Conc 33.4 g/dL (32.0-36.0); Mean Corpuscular Volume 96.4 fL (80.0-100.0); Mean Platelet Volume 9.4 fL (9.4-12.4); Monocytes # (auto) 0.96 K/uL (0.11-0.59); Monocytes % (auto) 6.6 %; Neutrophils # (auto) 9.09 K/uL (1.40-6.50); Neutrophils % (auto) 62.6 %; Platelet Count 303 K/uL (130-400); RDW Coefficient of Variation 12.8 % (11.5-14.5); RDW Standard Deviation 45.1 fL (36.4-46.3); Red Blood Count 3.35 M/uL (4.20-5.40); White Blood Count 14.53 K/ul (4.8-10.8)
[2023-12-15 06:27] LABS: BUN Creatinine Ratio 30.6 (10-20); Calcium 8.8 mg/dl (8.6-10.3); Creatinine Clr Calc Pharmacy 87.3 ml/min; Est GFR (African American) 110.4 ml/min; Est GFR (Non-African American) 95.3 ml/min
--- NOTE | 2023-12-15 08:27 | Discharge Summary ---
Date of Service December 15, 2023 Admission HPI Per Admitting Provider This is a 63-year-old female who presents with chronic persistent back and leg pain after failing course of nonoperative care she is here for surgical invention. Principal Diagnosis Lumbar spinal stenosis with neurogenic claudication Discharge Data Allergies Allergy/AdvReac Type Severity Reaction Status Date / Time No Known Allergies Allergy Verified 12/12/23 08:45 Consultations 12/12/23 13:43 Consult Hospitalist Routine Procedures Performed Operation Date: 12/12/23 10:05 Actual Procedures p L4-S1 Decompression and Fusion, Spinal Cord Monitoring(Not Applicable) - Gopal Macias DO Ordered Studies 12/12/23 10:05 [place] lumbar spine 2-3V Routine Hospital Course (1) Neurogenic claudication due to lumbar spinal stenosis: Patient with lumbar decompression fusion tolerated as well as taken to the o rthopedic floor postoperatively. Postop patient progressed appropriately. Pain improved over the course of her stay. Excellent strength in lower extremities. THEE drain decreasing appropriately. Subsidy discharged home. Discharge orders instructions on the chart for further review. Total Time Total Time Spent Total Time Spent (In Minutes): 20 minutes Discharge Plan Discharge Items Patient Disposition: Home - Self-Care Reason For Visit: Herniated Nucleus Pulposus, Lumbar Radiculopathy, Discharge Diagnosis: Lumbar spinal stenosis with neurogenic claudication Activity: As commented below Non-emergency contact: Primary Care Provider Call non-emergency contact if: you have any medication questions Follow-up/Referrals: Chery Kearns MD [Primary Care Provider] - Diet: Regular Addtl Attending Provider Instructions: ACTIVITY RECOMMENDATIONS: SELF CARE INSTRUCTIONS AFTER THORACIC/LUMBAR FUSIONS 1. You may walk to your tolerance. It is good exercise for your legs and back. Expect some back and intermittent leg aches and pains. 2. You may perform "counter-top" level activities (make a sandwich, torrey with a project, etc.). 3. No bending or lifting of more than 10 pounds or back twisting of any nature (roll like a log when turning in bed). 4. You may ride in a car for 20-30 minutes at a time. No driving until after your first visit with your doctor. 5. Frequent changes of position and restricting sitting to 30 minutes at a time will help limit the amount of back spasms and stiffness you may experience. 6. You may discontinue the use of ambulatory aids (cane, crutches, etc.) once your strength and confidence allow. 7. You may installation specialist the shower and let water strike your incision when you arrive home at least once daily. Do not take a tub bath, sit in a hot tub or go into a swimming pool until after your first recheck in the office. SPECIAL CARE INSTRUCTIONS: VERY IMPORTANT TO READ AND REVIEW A. Your surgical incision has been closed with a cosmetic suture under the skin that will dissolve in about 6 weeks. In 14 days, you can use a pair of clean scissors and cut the suture that is left outside of the skin at the ends of your incision. 1. The small skin tapes can be removed 7 days after surgery if they have not fallen off by that point. 2. You may keep the wound open to air as much as possible to promote healing after post-op day number 5 unless told otherwise by your doctor. 3. If you think the wound looks like it is becoming infected (redness or worsening drainage) and/or you are experiencing fever, chill or worsening back pain and muscle spasms, contact the office so that we may evaluate you as soon as possible. B. Complications are uncommon, but please contact us if you have any signs or symptoms of: 1. wound infection (fever higher than 102.5 degrees F, redness, separation of wound, drainage, or increasing pain from the incision) 2. blood clots in legs (pain, swelling, redness and warmth in legs) 3. urinary tract infection (fever higher than 102.5 degrees F, burning upon urination or increased frequency of urination) 4. nerve problems (inability to walk on your toes or heels, numbness, loss of bowel or bladder control) 5. any other symptoms that concern you C. Please call the office at if you have any concerns or que stions about your operation or recovery. D. No smoking! Smoking drastically decreases the chance of a solid fusion. E. Do not take any anti-inflammatory medications (Indocin, Advil, Motrin, Aspirin, Naprosyn, etc.) as these may inhibit the chance of a solid fusion. Tylenol is okay to take for pain. MANAGING PAIN AFTER SPINAL SURGERY 1. Narcotic medication is intended for short-term use and will be provided for surgical pain. Surgical pain usually lasts for a period of 4-6 weeks. Narcotic medication includes Percocet, Vicodin, Darvocet, Tylenol #3 or Lortab. 2. Longer-term pain is more appropriately treated with non-narcotic medication such as Tylenol ES. 3. Muscle spasm is not appropriately treated with narcotics. Muscle relaxers such as Soma, Flexeril or Skelaxin can be used along with Tylenol ES. 4. Remember that we all live with some "aches and pains". This is not unusual or uncommon after an injury or as we get older. a. Back pain is expected and may include muscle spasms for 4 to 6 weeks after surgery. The pain should gradually improve. If the pain worsens for no apparent reason, please contact the office. b. Intermittent leg pain may also be experienced and should not be concerned about unless it worsens for no apparent reason. If so, please contact the office. 5. We will provide appropriate medication within the normal guidelines of their prescribed use. We will also be very cautious and aware of potential abuse and extended duration of patients' medication needs. a. Pain medications are for your comfort and to assist with sleep and rest so that the tissue can heal. They are not provided in order to return to normal activity and should not be used through the day. To do so or worsening pain at night can result from ongoing tissue damage and development of tolerance to the prescribed medicine. 6. Please allow 2-3 days to process refills. Prescriptions will not be mailed but must be picked up at the office. FOLLOW UP VISIT: Keep your scheduled follow-up appointment. Any questions, please call the office at . Pending Studies at Discharge: No Stand-Alone Forms: [facility], [facility] C[facility] Medications and DC Order Prescriptions: New tramadol 50 mg tablet 50 mg PO Q6H PRN (Reason: pain, moderate) Qty: 30 0RF oxycodone 5 mg tablet 5 mg PO Q6H PRN (Reason: pain) Qty: 30 0RF Continued cetirizine [Zyrtec] 10 mg Tablet 10 mg PO QAM meloxicam 15 mg Tablet 15 mg PO QAM pravastatin 80 mg Tablet 80 mg PO HS escitalopram oxalate 10 mg Tablet 10 mg PO QAM ezetimibe 10 mg Tablet 10 mg PO QAM cholecalciferol (vitamin D3) [Vitamin D3] 25 mcg (1,000 unit) Tablet 25 mcg PO QAM montelukast 10 mg Tablet 10 mg PO HS acetaminophen 500 mg Tablet 1,000 mg PO BID Discharge Orders: Discharge Order (Routine); Ordered 12/15/23 Ordered By: Gopal Macias Admission Data Admit Date/Time: 12/12/23 12:03 Attending Provider: Gopal Macias Admit Provider: Gopal Macias Primary Care Provider: Chery Kearns Other Providers: Grace Sharma
--- NOTE | 2023-12-15 12:04 | Hospitalist Progress Note ---
Date of Service December 15, 2023 Assessment & Plan (1) Neurogenic claudication due to lumbar spinal stenosis: (2) Hyperlipidemia: Plan This is a 63-year-old female who has a significant past medical history of chronic back pain, hyperlipidemia and depression who presents for elective lumbar procedure by Dr. Macias. Neurogenic claudication due to lumbar spinal stenosis Status post L4-S1 lumbar decompression fusion, by Dr. Macias Procedure on 12/12/23 EBL 400 mL Tolerated procedure well Pain/wound management per orthopedics Activity and therapy as prescribed orthopedics Encourage incentive spirometer Preoperative hemoglobin 14.4, monitor postoperatively -currently stable at 10.8 -continue to monitor after discharge pt discharged on 12/15. Hyperlipidemia Chronic, stable Continue statin, ezetimibe Depression Chronic, stable Continue escitalopram DVT prophylaxis: per primary team Full code Dispo: per primary Admission and Anticipated Discharge Date Admission Date: December 12, 2023 Subjective Pt was seen sitting in chair at bedside. Was ready for discharge. Denied acute concerns. Review of Systems Review of Systems: All systems reviewed & are unremarkable except as noted in Subjective Physical Exam Physical Exam: General: Alert, oriented. No acute distress Skin: No noted rashes or bruises Psych: Appropriate mood and affect Neuro: walks with walker HEENT: NC/AT Chest: Nontender to palpation. CV: RRR Resp: Breath sounds clear bilaterally, no increased effort of breathing. Abdomen: Soft, nontender, nondistended. No guarding. No organomegaly appreciated. Extremities: No edema in lower extremities bilaterally. Results & Data Results & Data Vital Signs (Past 12 Hours) Vital Signs Temp Pulse Resp BP Pulse Ox O2 Del Method 12/15/23 07:11 36.4 C L 71 16 120/72 96 Room Air
== END 2023-12-15 12:34 | disposition home or self-care (01) | DRG 455 ==
LOC: ASU 08:23 → 3E 12:03